=== PATIENT | female | born 1950 | race Asian ===

== ENCOUNTER → 2023-12-23 | Outpatient (CLI) | payer MEDICARE, OTHER ==
[~2023-12-23] MED LIST: ALCO1MED TP; ATOR-2 PO; CARB30DR4 OU; CHOL210P PO; FLUT16SP NASAL; INSU100I3 SQ; INSU3INS3 SQ; LANC-493 TP; LISI20TA24 PO; URSO300C4 PO; [UNRECOGNIZED DRUG - CODE] MISC; [UNRECOGNIZED DRUG - OTHER]
== END | disposition home or self-care (01) ==
LOC: RADPV 14:42
PROVIDERS: ATTEND Student in an Organized Health Care Education/Training Program
DX: R74.8 Abnormal levels of other serum enzymes (principal)
CPT/HCPCS: 77080

== ENCOUNTER 2023-12-30 12:21 | Emergency (ER) | payer MEDICARE, OTHER ==
[~2023-12-30] VITALS: Ht 149.9 cm; Wt 37.3 kg
[2023-12-30 12:23] VITALS: TEMP 98.3
[2023-12-30] MEDS ORDERED: INSU3INS3 SQ (12:50)
[2023-12-30] MEDS ORDERED: FLUT16SP NASAL (12:50)
[2023-12-30] MEDS ORDERED: ATOR-2 PO (12:50)
[2023-12-30] MEDS ORDERED: LANC-493 TP (12:50)
[2023-12-30] MEDS ORDERED: [UNRECOGNIZED DRUG - OTHER] (12:50)
[2023-12-30] MEDS ORDERED: CHOL210P PO (12:50)
[2023-12-30] MEDS ORDERED: URSO300C4 PO (12:50)
[2023-12-30] MEDS ORDERED: INSU100I3 SQ (12:50)
[2023-12-30] MEDS ORDERED: [UNRECOGNIZED DRUG - CODE] MISC (12:50)
[2023-12-30] MEDS ORDERED: LISI20TA24 PO (12:50)
[2023-12-30] MEDS ORDERED: ALCO1MED TP (12:50)
[2023-12-30] MEDS ORDERED: CARB30DR4 OU (12:50)
[2023-12-30 13:40] LABS: COVID AG,FIA SOURCE NASAL SWAB
[2023-12-30 13:53] LABS: RAPID GROUP A STREP NEGATIVE (NEGATIVE)
[2023-12-30 13:54] LABS: SARS-COV2 (COVID) ANTIGEN,FIA Positive (Negative)
[2023-12-30 14:03] LABS: INFLUENZA TYPE A NEGATIVE FOR TYPE A (NEGATIVE); INFLUENZA TYPE B NEGATIVE FOR TYPE B (NEGATIVE)
[2023-12-30 14:25] VITALS: BP 130/57; PULSE 78; RESP 17
== END 2023-12-30 14:49 | disposition home or self-care (01) ==
LOC: EMS 12:21
DX: U07.1 COVID-19 (principal); E11.9 Type 2 diabetes mellitus without complications
CPT/HCPCS: 71046; 82962; 87430; 87804; 99284